=== PATIENT | female | born 1960 | race Caucasian/White ===

== ENCOUNTER 2018-04-03 04:00 | Inpatient (IN) | payer OTHER ==
[~2018-04-03] VITALS: Ht 162.6 cm; Wt 72.6 kg
[~2018-04-03 04:00] MED LIST: AFLURIA 2045 MCG/0.4; ALDACTONE25 MG PO; ALPRAZOLAM 0.0.25 M1 PO; AMBIEN 5 MG TABL5 M1 PO; ANTI-ITCH28.4 GM TP; ATIVAN1 MG PO; AUGMENTIN 875875 MG PO; BENADRYL25 MG PO; BISMATROL262 MG/15 PO; CIPRO250 M1 PO; CLONAZEPAM 0.50.5 M1 PO; COREG PO; CREON DR 6,0001 EACH PO; DEPAKOTE ER500 MG PO; DILAUDID 4 MG TA4 M1 PO; DIPHENHYDRAMINE25 M3 PO; DUONEB 2.5-0.5 M3 ML INH; EXCEDRIN MIGRA1 EACH PO; FISH OIL 1,001000 M2 PO; FLONASE 0.05%50 MCG NASAL; FOLIC ACID1 MG PO; FUROSEMIDE 40 M40 M1 PO; GABAPENTIN 100100 MG PO; GABAPENTIN100 MG PO; GLUCAGEN1 M2 IM; GLUCAGEN1 MG IM; GLUCOTROL5 MG PO; HUMALOG100 UNIT/1 SUBQ; HUMALOG100 UNIT/2 SQ; HYDROCODONE-AP1 EAC6 PO; IBUPROFEN 400400 M1 PO; IBUPROFEN 600600 M1 PO; IMITREX 25 MG T25 M1 PO; KEFLEX500 MG PO; KLOR-CON 1010 MEQ PO; LAMICTAL100 MG PO; LAMISIL250 MG PO; LANOXIN 0.120.125 M1 PO; LEVOTHROID125 MCG PO; LEVOTHYROXIN0.025 MG PO; LEXAPRO 10 MG T10 M1 PO; LEXAPRO20 MG PO; LIORESAL 10 MG10 MG PO; LOPERAMIDE 2 MG2 M1 PO; LOPRESSOR25 PO; LYRICA 50 MG50 MG PO; MAALOX ADVANCE355 M1 PO; MAGOX 400400 MG PO; MELATIN3 MG PO; METOPROLOL TART25 MG PO; METROCREAM45 GM TP; MILK OF MA2400 MG/10 PO; MYSOLINE50 MG PO; NEURONTIN 300300 M1 PO; NOVOLOG100 UNIT/1; NOVOLOG100 UNIT/1 SQ; NOVOLOG100 UNIT/1 SUBQ; OLANZAPINE5 MG PO; OMEPRAZOLE20 M2 PO; ONDANSETRON HCL4 M2 PO; ONDANSETRON HCL4 M3 PO; ONDANSETRON ODT4 MG PO; OXYBUTYNIN 5 MG5 M2 PO; OXYCODONE HCL5 M1 PO; OXYIR 5 MG CAPSU5 M1 PO; PANCRELIPASE 51 EACH PO; PEPTO-BISM262 MG/15 PO; PERCOCET 5-3251 EACH PO; PNEUMOVAX25 MCG/0.5; PROMETHAZINE IM; PROTONIX40 M2 PO; PROVENTIL HFA6.7 G1 INH; SEROQUEL 100 M100 M1 PO; SEROQUEL 50 MG50 M1 PO; SEROQUEL 50 MG50 MG PO; SORE THROAT SP177 M1 MM; SYNTHROID125 MCG PO; SYNTHROID75 MCG PO; TIZANIDINE HCL4 MG PO; TOPROL XL25 MG PO; TRILIPIX135 MG PO; TYLENOL EXTRA500 MG PO; TYLENOL325 MG PO; VIMPAT200 MG PO; VITAMIN B-1100 M1 PO; VITAMIN B-650 M1 PO; VITAMIN D3400 UNIT PO; WELLBUTRIN SR100 MG PO; XANAX 0.25 MG0.25 MG PO; ZANAFLEX4 MG PO; ZEGERID 40 MG1 EACH PO; ZYPREXA ZYDIS10 MG PO; ZYPREXA10 MG/VIAL IM; ZYRTEC 10 MG TA10 MG PO
[2018-04-03 04:05] VITALS: BP 117/76
[2018-04-03 04:55] LABS: ABSOLUTE NEUTROPHILS 4.3 thou/uL (1.4-8.2); BASOPHILS 0.8 % (0.0-2.0); EOSINOPHILS 2.7 % (0.0-3.0); HEMATOCRIT 38.1 % (37.0-47.0); HEMOGLOBIN 13.4 gm/dL (12.0-15.0); LYMPHOCYTES 30.9 % (24.0-44.0); MCHC 35.3 g/dL (28.0-37.0); MCV 90.6 fL (80.0-100.0); MONOCYTES 7.6 % (1.0-8.0); PLATELET COUNT 157 thou/uL (150-400); RBC 4.21 mil/uL (4.20-5.00); RDW 13.2 % (10.5-14.5); WBC 7.5 thou/uL (4.0-11.0)
[2018-04-03 05:03] LABS: CREATININE 1.1 mg/dL (0.6-1.0); POTASSIUM 3.8 mmol/L (3.5-5.1)
[2018-04-03 05:08] LABS: ALBUMIN 3.3 g/dL (3.4-5.0); TOTAL BILIRUBIN 0.2 mg/dL (<0.1-1.0)
[2018-04-03] MEDS ORDERED: FISH OIL 1,001000 M2 PO (07:01)
[2018-04-03] MEDS ORDERED: VITAMIN D1000 UNI1 PO (07:07)
[2018-04-03] MEDS ORDERED: LIORESAL 10 MG10 MG PO (07:08)
[2018-04-03] MEDS ORDERED: NOVOLOG100 UNIT/1 SUBQ (07:13)
[2018-04-03 10:52] LABS: URINE BILIRUBIN NEGATIVE (Negative); URINE BLOOD NEGATIVE (Negative); URINE CLARITY CLEAR; URINE COLOR YELLOW; URINE GLUCOSE-RANDOM* NEGATIVE (Negative); URINE KETONES NEGATIVE (Negative); URINE LEUKOCYTES-REFLEX NEGATIVE (Negative); URINE NITRITE-REFLEX NEGATIVE (Negative); URINE PROTEIN (DIPSTICK) NEGATIVE (Negative); URINE SPECIFIC GRAVITY <= 1.005 (1.005-1.035); URINE UROBILINOGEN 0.2 E.U./dl (0.2-1.0)
[2018-04-03 11:21] VITALS: BP 110/71
[2018-04-03 12:55] VITALS: BP 110/80
[2018-04-03 13:10] VITALS: BP 120/67
[2018-04-03 16:20] VITALS: BP 100/41
[2018-04-03 19:58] VITALS: BP 96/74
[2018-04-04 00:05] VITALS: BP 113/55
[2018-04-04 04:10] LABS: GLYCOHEMOGLOBIN (HGB A1C) 5.9 % (4.8-5.6)
[2018-04-04 04:30] LABS: ABSOLUTE NEUTROPHILS 2.3 thou/uL (1.4-8.2); BASOPHILS 0.7 % (0.0-2.0); EOSINOPHILS 2.8 % (0.0-3.0); HEMATOCRIT 36.3 % (37.0-47.0); HEMOGLOBIN 12.4 gm/dL (12.0-15.0); MCH 31.6 pg (26.0-34.0); MCHC 34.3 g/dL (28.0-37.0); MCV 92.2 fL (80.0-100.0); PLATELET COUNT 147 thou/uL (150-400); POLYS 50.5 % (36.0-66.0); RBC 3.94 mil/uL (4.20-5.00); RDW 13.2 % (10.5-14.5); WBC 4.6 thou/uL (4.0-11.0)
[2018-04-04 04:35] LABS: CALCIUM 8.4 mg/dL (8.5-10.1); CREATININE 0.9 mg/dL (0.6-1.0); MAGNESIUM 1.8 mg/dL (1.8-2.4)
[2018-04-04 04:50] VITALS: BP 106/57
[2018-04-04 08:50] VITALS: BP 98/51
[2018-04-04 11:45] VITALS: BP 126/63
[2018-04-04 15:30] VITALS: BP 107/67
[2018-04-04 19:17] VITALS: BP 129/80
[2018-04-04 21:04] LABS: BE(vivo) 0.9 mmol/L (-2 to +3); HCO3 24.3 mmol/L (22.0-26.0); PCO2 34.7 mmHg (35.0-45.0); PO2 65.1 mmHg (80.0-100.0); pH 7.463 (7.360-7.450)
[2018-04-05 03:53] VITALS: BP 125/69
[2018-04-05 03:58] LABS: ABSOLUTE NEUTROPHILS 1.8 thou/uL (1.4-8.2); BASOPHILS 0.7 % (0.0-2.0); EOSINOPHILS 2.4 % (0.0-3.0); HEMATOCRIT 35.8 % (37.0-47.0); HEMOGLOBIN 12.5 gm/dL (12.0-15.0); MCH 31.9 pg (26.0-34.0); MCHC 35.1 g/dL (28.0-37.0); PLATELET COUNT 130 thou/uL (150-400); POLYS 43.9 % (36.0-66.0); RBC 3.93 mil/uL (4.20-5.00)
[2018-04-05 04:11] LABS: CALCIUM 8.7 mg/dL (8.5-10.1); CREATININE 1.1 mg/dL (0.6-1.0); POTASSIUM 3.8 mmol/L (3.5-5.1)
[2018-04-05] MEDS ORDERED: KEFLEX500 M2 PO (10:45)
[2018-04-05 11:00] VITALS: BP 117/66
[2018-04-05 15:01] VITALS: BP 139/91
[2018-04-05 19:44] VITALS: BP 148/97
== END 2018-04-05 20:33 | DRG 603 ==
LOC: ER 04:00 → EROBS 06:13 → 2N 12:56
PROVIDERS: Emergency Medicine; Hospitalist; Nurse Practitioner
DX: L03.115 Cellulitis of right lower limb (principal); G82.20 Paraplegia, unspecified; L03.116 Cellulitis of left lower limb; F31.9 Bipolar disorder, unspecified; G40.909 Epilepsy, unspecified, not intractable, without status epilepticus; E11.40 Type 2 diabetes mellitus with diabetic neuropathy, unspecified; E11.22 Type 2 diabetes mellitus with diabetic chronic kidney disease; I12.9 Hypertensive chronic kidney disease with stage 1 through stage 4 chronic kidney disease, or unspecified chronic kidney disease; N18.3 Chronic kidney disease, stage 3 (moderate); E03.9 Hypothyroidism, unspecified; K59.00 Constipation, unspecified; N32.81 Overactive bladder; F17.210 Nicotine dependence, cigarettes, uncomplicated; F10.10 Alcohol abuse, uncomplicated; Z79.899 Other long term (current) drug therapy; Z79.4 Long term (current) use of insulin; I25.2 Old myocardial infarction; Z79.82 Long term (current) use of aspirin; Z88.2 Allergy status to sulfonamides; Z88.8 Allergy status to other drugs, medicaments and biological substances; Z91.041 Radiographic dye allergy status; Z91.013 Allergy to seafood; Z87.19 Personal history of other diseases of the digestive system; Z99.3 Dependence on wheelchair
CPT/HCPCS: 10194

== ENCOUNTER 2018-08-06 02:29 | Inpatient (IN) | payer OTHER ==
[~2018-08-06] VITALS: Ht 152.4 cm; Wt 70.3 kg
--- NOTE | ~2018-08-06 | EKG ---
[address] [address] ELECTROCARDIOGRAM REPORT Name: BUNNY LUJAN Room #: 451-P ADM IN ..#: [id number] Admission: 08/06/18 Attend Phys: Scot Edmondson MD Discharge: Date of : 56 Report #: [id number] THIS REPORT FOR: //name// [facility] ED Test Date: 2018-08-06 Test Time: 04:29:36 Pat Name: BUNNY LUJAN Department: Room: [facility] Gender: F Nurseryperson: jennifer : 1960 Requested By: Navi Holman Order Number: [id number] MD: Gustavo Jose Measurements Intervals [place] Rate: 88 P: 66 TN: 155 QRS: -30 QRSD: 90 T: 66 QT: 398 QTc: 482 Interpretive Statements Sinus rhythm Left axis deviation Borderline T wave abnormalities Compared to ECG 01/01/2018 20:10:29 No significant change was found Electronically Signed On 08-06-2018 9:39:24 FUR DESIGNER by Gustavo Jose [email or web address] <ELECTRONICALLY SIGNED> By: Gustavo Jose MD, [facility] 08/06/18 0939 0429 042 Gustavo Jose MD, [facility] /EPI
--- NOTE | ~2018-08-06 | EEG ---
[facility] [place] [address] ELECTROENCEPHALOGRAM Name: BUNNY LUJAN Room #: 451-P ADM IN M.R.#: [id number] Admission: 08/06/18 Attend Phys: Junior Kumar MD Discharge: Date of : 56 Report #: [id number] THIS REPORT FOR: //name// CC: Junior Pretty DATE OF SERVICE: 08/07/2018 This patient is being evaluated for the possibility of seizure. EEG was done by placing the electrodes by standard 10-20 system of electrode placement. Both referential and sequential montages were used for recording. Background activity in this patient's EEG is about 11 Hz and 40 microvolt. The patient became drowsy that is associated with bilateral slowing. Photic stimulation was unremarkable. Throughout the record, no active epileptiform activity was noticed. IMPRESSION: This patient's electroencephalogram is within normal limits. It is a very well formed electroencephalogram. By: 1709 1718 Amari Diamond MD /nt
[~2018-08-06 02:29] MED LIST changes: +KEFLEX500 M2 PO; +VITAMIN D1000 UNI1 PO
[2018-08-06 02:39] VITALS: BP 126/66
[2018-08-06 04:17] LABS: HEMATOCRIT 35.1 % (37.0-47.0); MCH 30.8 pg (26.0-34.0); MCHC 34.3 g/dL (28.0-37.0); MCV 89.9 fL (80.0-100.0); RBC 3.9 mil/uL (4.20-5.00); RDW 13.1 % (10.5-14.5); WBC 5.4 thou/uL (4.0-11.0)
[2018-08-06 04:26] LABS: ANION GAP 9 mmol/L (7-16); BUN 9 mg/dL (7-18); CHLORIDE 108 mmol/L (98-107); CO2 29 mmol/L (21-32); GLUCOSE 112 mg/dL (74-106); POTASSIUM 3.5 mmol/L (3.5-5.1); SODIUM 146 mmol/L (136-145)
[2018-08-06 04:34] LABS: TROPONIN-I <0.06 ng/mL (<0.06)
[2018-08-06 04:36] LABS: BE(vivo) 3.5 mmol/L (-2 to +3); HCO3 28.2 mmol/L (22.0-26.0); PCO2 42.8 mmHg (35.0-45.0); PO2 71.4 mmHg (80.0-100.0); pH 7.436 (7.360-7.450); sO2 94.8 % (92.0-98.0)
[2018-08-06 04:54] LABS: URINE BILIRUBIN NEGATIVE (Negative); URINE BLOOD NEGATIVE (Negative); URINE CLARITY CLEAR; URINE COLOR YELLOW; URINE GLUCOSE-RANDOM* NEGATIVE (Negative); URINE KETONES 1+ (Negative); URINE LEUKOCYTES-REFLEX NEGATIVE (Negative); URINE NITRITE-REFLEX NEGATIVE (Negative); URINE PROTEIN (DIPSTICK) NEGATIVE (Negative); URINE UROBILINOGEN 0.2 E.U./dl (0.2-1.0)
[2018-08-06 05:02] LABS: AMP/METHAMP Negative (Negative); BARBITURATES Negative (Negative); BENZODIAZEPINES Negative (Negative); COCAINE Negative (Negative); METHADONE Negative (Negative); OPIATES Negative (Negative); PCP Negative (Negative)
[2018-08-06 06:46] VITALS: BP 100/56
[2018-08-06 06:58] VITALS: BP 100/56
[2018-08-06] MEDS ORDERED: NEURONTIN 300300 M1 PO (07:53)
[2018-08-06 16:57] LABS: ALBUMIN 2.6 g/dL (3.4-5.0); DIRECT BILIRUBIN 0.1 mg/dL (<0.1-0.3); TOTAL BILIRUBIN 0.4 mg/dL (<0.1-1.0); TOTAL PROTEIN 5.6 g/dL (6.4-8.2)
[2018-08-06 19:05] VITALS: BP 137/87
[2018-08-07 04:03] VITALS: BP 120/66
[2018-08-07 05:59] LABS: HEMATOCRIT 33.9 % (37.0-47.0); HEMOGLOBIN 11.7 gm/dL (12.0-15.0); MCH 31.5 pg (26.0-34.0); MCHC 34.5 g/dL (28.0-37.0); MCV 91.3 fL (80.0-100.0); RBC 3.71 mil/uL (4.20-5.00); RDW 13.4 % (10.5-14.5); WBC 4.8 thou/uL (4.0-11.0)
[2018-08-07 06:07] LABS: CALCIUM 8.4 mg/dL (8.5-10.1); CREATININE 0.9 mg/dL (0.6-1.0); POTASSIUM 3.7 mmol/L (3.5-5.1)
[2018-08-07 08:17] VITALS: BP 106/53
[2018-08-07 13:56] LABS: TSH 0.544 uIU/mL (0.358-3.740)
[2018-08-07] MEDS ORDERED: AUGMENTIN 875-1 EACH PO (13:59)
[2018-08-07 14:51] VITALS: BP 101/58
[2018-08-07 19:16] VITALS: BP 105/66
[2018-08-08 02:47] VITALS: BP 118/13
[2018-08-08 07:56] VITALS: BP 101/53
[2018-08-08 08:43] LABS: CALCIUM 9.3 mg/dL (8.5-10.1); CREATININE 0.9 mg/dL (0.6-1.0); POTASSIUM 3.9 mmol/L (3.5-5.1)
[2018-08-08 16:45] VITALS: BP 141/64
[2018-08-09 16:10] LABS: PRIMIDONE 0.5 ug/mL (5.0-12.0)
== END 2018-08-08 19:20 | DRG 603 ==
LOC: ER 02:29 → 4W 06:42 → EROBS 06:42 → 4W 07:34
PROVIDERS: Emergency Medicine; Hospitalist; Psychiatry & Neurology Neurology
DX: L03.116 Cellulitis of left lower limb (principal); E46 Unspecified protein-calorie malnutrition; K74.60 Unspecified cirrhosis of liver; L03.115 Cellulitis of right lower limb; F31.9 Bipolar disorder, unspecified; G40.909 Epilepsy, unspecified, not intractable, without status epilepticus; E11.40 Type 2 diabetes mellitus with diabetic neuropathy, unspecified; F17.210 Nicotine dependence, cigarettes, uncomplicated; N32.81 Overactive bladder; E83.42 Hypomagnesemia; K21.9 Gastro-esophageal reflux disease without esophagitis; Z71.6 Tobacco abuse counseling; Z68.30 Body mass index [BMI] 30.0-30.9, adult; I25.2 Old myocardial infarction; Z79.4 Long term (current) use of insulin; Z79.82 Long term (current) use of aspirin; Z79.51 Long term (current) use of inhaled steroids; Z79.899 Other long term (current) drug therapy; Z91.041 Radiographic dye allergy status; Z91.013 Allergy to seafood; Z88.2 Allergy status to sulfonamides; Z91.048 Other nonmedicinal substance allergy status; Z82.0 Family history of epilepsy and other diseases of the nervous system
CPT/HCPCS: 10045

== ENCOUNTER 2018-08-13 04:18 | Emergency (ER) | payer OTHER ==
[~2018-08-13] VITALS: Ht 149.9 cm; Wt 68.0 kg
[~2018-08-13 04:18] MED LIST changes: +AUGMENTIN 875-1 EACH PO
[2018-08-13 06:12] VITALS: BP 109/67
== END 2018-08-13 07:13 | disposition home or self-care (01) ==
LOC: ER 04:18
DX: S01.01XA Laceration without foreign body of scalp, initial encounter (principal); F17.210 Nicotine dependence, cigarettes, uncomplicated; F31.9 Bipolar disorder, unspecified; G62.9 Polyneuropathy, unspecified; K74.60 Unspecified cirrhosis of liver; Z91.013 Allergy to seafood; Z91.041 Radiographic dye allergy status; Z91.048 Other nonmedicinal substance allergy status; Z88.2 Allergy status to sulfonamides; W05.0XXA Fall from non-moving wheelchair, initial encounter; Y93.89 Activity, other specified; Y92.89 Other specified places as the place of occurrence of the external cause; Y99.8 Other external cause status

== ENCOUNTER 2019-09-10 12:42 | Emergency (ER) | payer OTHER ==
[~2019-09-10] VITALS: Ht 149.9 cm; Wt 68.0 kg
[2019-09-10 13:11] LABS: ABSOLUTE NEUTROPHILS 5.2 thou/uL (1.4-8.2); BASOPHILS 0.5 % (0.0-2.0); EOSINOPHILS 4.5 % (0.0-3.0); HEMATOCRIT 38.8 % (37.0-47.0); HEMOGLOBIN 13.3 gm/dL (12.0-15.0); LYMPHOCYTES 19.6 % (24.0-44.0); MCH 29.4 pg (26.0-34.0); MCHC 34.3 g/dL (28.0-37.0); MCV 85.7 fL (80.0-100.0); MONOCYTES 7.6 % (1.0-8.0); PLATELET COUNT 117 thou/uL (150-400); POLYS 67.8 % (36.0-66.0); RBC 4.53 mil/uL (4.20-5.00); RDW 17.2 % (10.5-14.5); WBC 7.7 thou/uL (4.0-11.0)
[2019-09-10 13:17] LABS: CALCIUM 9.8 mg/dL (8.5-10.1); CREATININE 1.5 mg/dL (0.6-1.0); POTASSIUM 3.4 mmol/L (3.5-5.1)
[2019-09-10 13:23] LABS: ALBUMIN 2.8 g/dL (3.4-5.0); TOTAL BILIRUBIN 0.5 mg/dL (<0.1-1.0); TOTAL PROTEIN 7.1 g/dL (6.4-8.2)
[2019-09-10 18:26] VITALS: BP 101/53
== END 2019-09-10 18:25 | disposition home or self-care (01) ==
LOC: ER 12:42
PROVIDERS: Physician Assistant
DX: R56.9 Unspecified convulsions (principal); F31.9 Bipolar disorder, unspecified; I25.2 Old myocardial infarction; G62.9 Polyneuropathy, unspecified; F17.210 Nicotine dependence, cigarettes, uncomplicated; Z88.2 Allergy status to sulfonamides; Z91.018 Allergy to other foods

== ENCOUNTER 2019-09-21 21:39 | Inpatient (IN) | payer OTHER ==
[~2019-09-21] VITALS: Ht 162.6 cm; Wt 69.3 kg
--- NOTE | ~2019-09-21 | EEG ---
[facility] [place] [address] ELECTROENCEPHALOGRAM Name: BUNNY LUJAN Room #: 213-P ADM IN M.R.#: [id number] Admission: 09/22/19 Attend Phys: Maximo Moctezuma MD Discharge: Date of : 56 Report #: [id number] THIS REPORT FOR: //name// CC: [facility]imo [facility] DATE OF SERVICE: 09/23/2019 INDICATIONS: This patient is being evaluated for the possibility of seizure. PROCEDURE: EEG was done by placing the electrodes by standard 10-20 system of electrode placement. Both referential and sequential montages were used for recording. Background activity in this patient's EEG appears to be about 8 Hz and 40 microvolts. The patient became drowsy that is associated with bilateral slowing and vertex sharp waves. Throughout the record, no active epileptiform activity was noticed. IMPRESSION: This patient's EEG does not demonstrate any clear-cut epileptiform activity. EEG is intermixed with theta range slowing on both sides. That is a nonspecific abnormality, which can occur with drowsiness, effect of psychotropic medication, dementia, etc. Clinical correlation is recommended. By: 1555 [id number] Amari Pascual MD /nt
[2019-09-21 21:47] VITALS: BP 80/40
[2019-09-21 22:24] LABS: URINE BILIRUBIN NEGATIVE (Negative); URINE BLOOD NEGATIVE (Negative); URINE CLARITY CLEAR; URINE COLOR YELLOW; URINE GLUCOSE-RANDOM* NEGATIVE (Negative); URINE KETONES NEGATIVE (Negative); URINE LEUKOCYTES-REFLEX NEGATIVE (Negative); URINE NITRITE-REFLEX NEGATIVE (Negative); URINE PROTEIN (DIPSTICK) NEGATIVE (Negative); URINE SPECIFIC GRAVITY <= 1.005 (1.005-1.035); URINE UROBILINOGEN 0.2 E.U./dl (0.2-1.0)
[2019-09-21 22:31] LABS: AMP/METHAMP Negative (Negative); BARBITURATES Negative (Negative); BENZODIAZEPINES Negative (Negative); COCAINE Negative (Negative); METHADONE Negative (Negative); OPIATES POSITIVE (Negative); PCP Negative (Negative)
[2019-09-21 22:38] LABS: BE(vivo) -0.2 mmol/L (-2 to +3); HCO3 25.2 mmol/L (22.0-26.0); PCO2 44.5 mmHg (35.0-45.0); PO2 81.4 mmHg (80.0-100.0); pH 7.371 (7.360-7.450); sO2 95.7 % (92.0-98.0)
[2019-09-21 23:14] LABS: ANION GAP 7 mmol/L (7-16); BUN 5 mg/dL (7-18); CALCIUM 8.5 mg/dL (8.5-10.1); CHLORIDE 108 mmol/L (98-107); CO2 29 mmol/L (21-32); CREATININE 1.1 mg/dL (0.6-1.0); GLUCOSE 148 mg/dL (74-106); POTASSIUM 3.1 mmol/L (3.5-5.1); SODIUM 144 mmol/L (136-145)
[2019-09-21 23:23] LABS: ABSOLUTE NEUTROPHILS 1.9 thou/uL (1.4-8.2); BASOPHILS 0.8 % (0.0-2.0); EOSINOPHILS 4.8 % (0.0-3.0); HEMATOCRIT 24.7 % (37.0-47.0); HEMOGLOBIN 8.3 gm/dL (12.0-15.0); LYMPHOCYTES 31.5 % (24.0-44.0); MCH 30.1 pg (26.0-34.0); MCHC 33.8 g/dL (28.0-37.0); MCV 89.1 fL (80.0-100.0); MONOCYTES 8.7 % (1.0-8.0); PLATELET COUNT 120 thou/uL (150-400); POLYS 54.2 % (36.0-66.0); RBC 2.77 mil/uL (4.20-5.00); RDW 17.8 % (10.5-14.5); TROPONIN-I <0.06 ng/mL (<0.06); WBC 3.5 thou/uL (4.0-11.0)
[2019-09-22] VITALS (13 sets, daily range): BP systolic 99–134; BP diastolic 56–93
[2019-09-22 01:00] LABS: ABSOLUTE NEUTROPHILS 1.6 thou/uL (1.4-8.2); BASOPHILS 0.8 % (0.0-2.0); EOSINOPHILS 4.9 % (0.0-3.0); HEMATOCRIT 25.2 % (37.0-47.0); HEMOGLOBIN 8.6 gm/dL (12.0-15.0); LYMPHOCYTES 36.8 % (24.0-44.0); MCH 30.1 pg (26.0-34.0); MCHC 33.9 g/dL (28.0-37.0); MCV 88.9 fL (80.0-100.0); MONOCYTES 8.7 % (1.0-8.0); PLATELET COUNT 112 thou/uL (150-400); POLYS 48.8 % (36.0-66.0); RBC 2.84 mil/uL (4.20-5.00); RDW 17.7 % (10.5-14.5); WBC 3.3 thou/uL (4.0-11.0)
--- NOTE | 2019-09-22 02:59 | NUR ---
PT ARRIVED FROM ED AT 0155 ACCOMPANIED BY ED RN, TOBIAS. PT LETHARGIC RESPONDED WHEN TRANSFERED TO ICU BED. PT ABLE TO IDENTIFY SELF AND ACKNOWLEDGES THAT SHE IS IN THE HOSPITAL. UPON ASSESSMENT PT WAS NOTED TO HAVE A CONGESTED COUGH. ORAL CARE PERFORMED. PT WAS ORALLY SUCTIONED AND NOTED TO HAVE MODERATE AMOUNT OF VOMITUS/UNDIGESTED FOOD. ORDERS INITIATED PTs SYSTOLIC BP 90s. PER ED REPORT PT HAD BEEN HAVING SIMILAR BP IN ED. WILL CONTINUE TO MONITOR.
[2019-09-22 03:26] LABS: HEMATOCRIT 28.2 % (37.0-47.0); HEMOGLOBIN 9.4 gm/dL (12.0-15.0); MCH 29.9 pg (26.0-34.0); MCHC 33.3 g/dL (28.0-37.0); MCV 90.1 fL (80.0-100.0); RBC 3.13 mil/uL (4.20-5.00); RDW 18.2 % (10.5-14.5); WBC 3.6 thou/uL (4.0-11.0)
[2019-09-22 03:29] LABS: CALCIUM 8.6 mg/dL (8.5-10.1); CREATININE 1.1 mg/dL (0.6-1.0); POTASSIUM 3.5 mmol/L (3.5-5.1)
[2019-09-22 04:02] LABS: TSH 0.434 uIU/mL (0.358-3.740)
--- NOTE | 2019-09-22 07:30 | NUR ---
Assumed care at 0700. Pt appears drowsy and is disoriented to place and time. Pt does not make eye contact when communicating with staff. Pt is tearful saying "I have to pee!" Pt was placed on bedpan but was unable to void. Bladder was palpable. Nurse bladder scanned the Pt and >999 mls were noted. Provider was notified and a haro catheter was placed. A residual of 1200 mls was noted after placement. Pt expressed relief of urinary discomfort. Nurse will continue to monitor.
--- NOTE | 2019-09-22 12:50 | NUR ---
Dr. Moctezuma on unit to see PT. He ordered for the haro catheter to be dc'd and stated the PT could be transferred out of ICU. Nurse dc'd haro catheter and PT tolerated it well. Will continue to monitor.
--- NOTE | 2019-09-22 18:01 | NUR ---
Report called to Desi on CCU who verbalized understanding. PT left unit on bed with nurse escort. PT is agreeable to transfer.
--- NOTE | 2019-09-22 21:50 | NUR ---
PT REPORTED LEAVING PERSONAL ITEMS IN ICU PRIOR TO TRANSFER NOTABLY [address] MARIELA, BAG OF CHIPS, BAG OF TEA BAGS, 2 PANTENE BOTTLES AND LAVENDER POWDER. THIS NURSE WENT TO ICU X2 NONE OF THE ITEMS WERE IN HER PREVIOUS ROOM 243. PT AGITATED STATED SHE WANTED FILE GRIEVANCE. THIS NURSE ASKED HSE, WHO WENT AND SPOKE WITH THE PT. PER HSE SUP PT LEFT HER ITEMS AT [facility] WHERE SHE RESIDES NOT IN ICU
[2019-09-23 00:48] VITALS: BP 111/55
[2019-09-23 04:45] VITALS: BP 114/64; BP 158/65
--- NOTE | 2019-09-23 06:25 | NUR ---
PT A&O X4 FORGETFUL. ABLE TO MAKE BASIC NEEDS KNOWN. PARAPLEGIC. PT ADM FOR NARCOTICS OVERDOSE. NO PAIN MEDICATION GIVEN OVERNITE. INCONT ASSIST X1 CHECK AND CHANGE. SEIZURE PRECAUTIONS. ACHS. PT HAS SCHEDULED EEG AND MRI.
[2019-09-23 07:50] VITALS: BP 124/64
--- NOTE | 2019-09-23 08:14 | NUR ---
ASSUMED CARE OF PT APPROX 0713, RESTING LISTENING TO TELEVISIN, C/O SEVERE PAIN, BLE X YEARS, LEGS WRAPPED, NO TYLENOL OR IBUPROFEN ON MED REQ. PT STATES THE ONLY THING THAT WORKS FOR HER IS HYDROCODONE, TYLENOL WORKS A LITTLE BUT HURTS HER GUT LIKE ASPIRIN. A&0X4, IS NOT IMPULSIVE THUS FAR. SEE SEPARATE INTERVENTIONS FOR ASSESSMENTS, CARDIAC MONITORED. WILL CONTINUE TO MONIOR. HASN'T WALKED, PER PT, SINCE JUL 22, 2010, FELL INTO DIABETIC COMA. ENCOURAGED HER TO USE CALL LIGHT FOR ANY NEEDS
[2019-09-23 11:30] VITALS: BP 134/70
--- NOTE | 2019-09-23 15:50 | NUR ---
PT ASKED FOR HER SEIZURE MEDICATION AND BACLOFEN. NOT ON EMAR, ON HER ORIGINAL MED LIST, REVIEWED MEDS AND SHE TAKES ALL SAVE FOR FISH OIL (ALLERGY TO FISH). SENT COMMUNICATION TO PHYSICIAN FOR REVIEW, IF APPLICABLE
[2019-09-23 16:00] VITALS: BP 124/74
[2019-09-23 19:16] VITALS: BP 126/63
[2019-09-24 02:59] VITALS: BP 120/65
[2019-09-24 04:35] LABS: % SATURATION 22 % (20-39); IRON 30 ug/dL (50-170); TIBC 134 ug/dL (250-450)
[2019-09-24 04:45] LABS: CALCIUM 8.9 mg/dL (8.5-10.1); CREATININE 1.1 mg/dL (0.6-1.0); MAGNESIUM 1.6 mg/dL (1.8-2.4); POTASSIUM 3.7 mmol/L (3.5-5.1)
[2019-09-24 04:54] LABS: HEMATOCRIT 25.8 % (37.0-47.0); HEMOGLOBIN 8.6 gm/dL (12.0-15.0); MCHC 33.4 g/dL (28.0-37.0); MCV 89.9 fL (80.0-100.0); RBC 2.87 mil/uL (4.20-5.00); RDW 17.1 % (10.5-14.5); WBC 2.7 thou/uL (4.0-11.0)
--- NOTE | 2019-09-24 05:53 | NUR ---
ASSUMED PT CARE AT 1900 WITH NO SIGN OF DISTRESS NOTED IN PT. PT IS ALERT AND ORIENTED WITH NO SIGN OF DISTRESS NOTED. ASSESSMENT COMPLETED AND DOCUMENTED. FALL PRECAUTION IN PLACE. SCHEDULED MEDS ADMINISTERED TO PT. TOLERATED PO INTAKE. DENIES ANY FURTHER NEEDS AT THIS TIME.
[2019-09-24 07:55] VITALS: BP 106/54
[2019-09-24 11:39] VITALS: BP 107/59
--- NOTE | 2019-09-24 12:00 | NUR ---
WOUND CARE NOTE pt alert but forgetful, dm ulcer l foot above 5th toe, pt unsure how long wound has been then? unnbecca casanova was on l lower leg, w/ kerlix and domenica wrap, also kerlix domenica wraps to r lower leg, pt states domenica wraps keep swelling down, ulcer w/ some pink viable tissue w/ small area center of wound white slough, dry closed ulcer l buttock area, pt cooperative, feet warm, weak DP and PT pulses, no edmea, dry skin RECOMMENDATIONS; LOTION TO DRY SKIN W/ EVERY DRSG CHANGE, THERAHONEY TO L TOE WOUND, COVER w/ OPTIFOAM, KERLIX, DOMENICA WRAP, 3X WEEK, KERLIX AND DOMENICA TO R LOWER LEG TO CONTROL EDEMA, PROTECTIVE CREAM DAILY AND PRN TO L BUTTOCK CLOSED ULCER, PHOTO, EMBOSSING CALENDER OPERATOR MARY CARMEN NORRIS
--- NOTE | 2019-09-24 15:23 | NUR ---
FAXED CLINICAL UPDATE TO [facility] SPOKE WITH LETICIA IN ADM THAT POSS DC TODAY BACK TO FACILITY SHE CAN SET UP TRANSPORT WHEN PT DISCHARGES.
--- NOTE | 2019-09-24 16:50 | NUR ---
PT DISCHARGING TODAY TO [facility] FAXED DC ORDERS/SUMMARY TO FACILITY SPOKE WITH LETICIA IN ADM SHE RECEIVED DC ORDERS AND ARRANGED TRANSPORT BY [facility] FOR 1830 TODAY. NOTIFIED PT'S SON (BROOKS) AND DTR (ZAKIYAAMBROCIO) OF DISCHARGE AND TIME OF TRANSPORT. UNIT NOTIFIED AND CHART COPY PER US. RN TO CALL REPORT TO [phone].
[2019-09-24 17:17] VITALS: BP 121/81
--- NOTE | 2019-09-24 18:04 | NUR ---
ASSUMED CARE OF PT AT SHIFT CHANGE. ASSESSMENTS CHARTED. MEDS GIVEN PER NOV. VSS. PT A&OX4. C/O PAIN TREATED WITH IV MEDS WITH PARTIAL RELIEF. NO SZ ACTIVITY THIS SHIFT. PT USES BEDPAN. MRI AND EEG NEGATIVE. DISCHARGE ORDERS COMPLETE. TRANSPORTATION VIA WHEELCHAIR VAN ARRANGED. ALL BELONGINGS WITH PT.
[2019-09-27 09:07] LABS: PRIMIDONE 0.6 ug/mL (5.0-12.0)
== END 2019-09-24 19:01 | DRG 917 ==
LOC: ER 21:39 → EROBS 09-22 01:05 → ICU 09-22 01:50 → 2N 09-22 18:07
PROVIDERS: Emergency Medicine; Internal Medicine; Nurse Practitioner; Psychiatry & Neurology Neurology; ADMIT Internal Medicine
DX: T40.601A Poisoning by unspecified narcotics, accidental (unintentional), initial encounter (principal); J96.01 Acute respiratory failure with hypoxia; D61.818 Other pancytopenia; G82.20 Paraplegia, unspecified; G93.40 Encephalopathy, unspecified; F31.9 Bipolar disorder, unspecified; K74.60 Unspecified cirrhosis of liver; E87.6 Hypokalemia; E03.9 Hypothyroidism, unspecified; E11.40 Type 2 diabetes mellitus with diabetic neuropathy, unspecified; R19.7 Diarrhea, unspecified; I25.2 Old myocardial infarction; Z88.2 Allergy status to sulfonamides; Z88.8 Allergy status to other drugs, medicaments and biological substances; Z99.3 Dependence on wheelchair; Y92.89 Other specified places as the place of occurrence of the external cause; Z79.899 Other long term (current) drug therapy
CPT/HCPCS: 10081

== ENCOUNTER 2019-11-17 10:50 | Inpatient (IN) | payer OTHER ==
[~2019-11-17] VITALS: Ht 170.2 cm; Wt 72.2 kg
[2019-11-17 11:04] VITALS: BP 151/87
[2019-11-17] MEDS ORDERED: DEPAKOTE ER500 M1 PO (11:19)
[2019-11-17 11:46] LABS: BE(vivo) 1.4 mmol/L (-2 to +3); HCO3 26.9 mmol/L (22.0-26.0); PCO2 45.8 mmHg (35.0-45.0); PO2 73.3 mmHg (80.0-100.0); pH 7.386 (7.360-7.450); sO2 94.5 % (92.0-98.0)
[2019-11-17 12:11] LABS: URINE BILIRUBIN NEGATIVE (Negative); URINE BLOOD 3+ (Negative); URINE CLARITY CLEAR; URINE COLOR YELLOW; URINE GLUCOSE-RANDOM* NEGATIVE (Negative); URINE KETONES NEGATIVE (Negative); URINE LEUKOCYTES-REFLEX 2+ (Negative); URINE NITRITE-REFLEX NEGATIVE (Negative); URINE PROTEIN (DIPSTICK) NEGATIVE (Negative); URINE UROBILINOGEN 0.2 E.U./dl (0.2-1.0)
[2019-11-17 12:23] LABS: AMP/METHAMP Negative (Negative); BARBITURATES POSITIVE (Negative); BENZODIAZEPINES Negative (Negative); COCAINE Negative (Negative); METHADONE Negative (Negative); OPIATES Negative (Negative); PCP Negative (Negative)
[2019-11-17 12:25] LABS: RENAL EPITHELIAL CELLS 4-10 Moderate /LPF (None Seen); SQUAMOUS >10 Many /LPF (0-3); TRANSITIONAL EPITHEL CELL 4-10 Moderate /LPF (None Seen); URINE WBC-REFLEX 6-15 Few /HPF (0-5)
[2019-11-17 12:26] LABS: BACTERIA-REFLEX 1-9 Few /HPF (None Seen); CASTS None Seen /LPF (None Seen); CRYSTALS None Seen /LPF (None Seen)
[2019-11-17] MEDS ORDERED: PRO-STAT LIQUID30 M1 PO (12:43)
[2019-11-17 12:55] LABS: ABSOLUTE NEUTROPHILS 4.3 thou/uL (1.4-8.2); BASOPHILS 0.6 % (0.0-2.0); EOSINOPHILS 1.3 % (0.0-3.0); HEMATOCRIT 38.6 % (37.0-47.0); HEMOGLOBIN 12.4 gm/dL (12.0-15.0); LYMPHOCYTES 22.5 % (24.0-44.0); MCH 30.6 pg (26.0-34.0); MCHC 32.1 g/dL (28.0-37.0); MCV 95.2 fL (80.0-100.0); MONOCYTES 6.6 % (1.0-8.0); PLATELET COUNT 169 thou/uL (150-400); RBC 4.05 mil/uL (4.20-5.00); RDW 14.4 % (10.5-14.5); WBC 6.2 thou/uL (4.0-11.0)
[2019-11-17 13:10] LABS: ANION GAP 6 mmol/L (7-16); BUN 9 mg/dL (7-18); CALCIUM 9.3 mg/dL (8.5-10.1); CHLORIDE 105 mmol/L (98-107); CO2 33 mmol/L (21-32); GLUCOSE 112 mg/dL (74-106); POTASSIUM 4.3 mmol/L (3.5-5.1); SODIUM 144 mmol/L (136-145)
[2019-11-17 13:21] LABS: ALBUMIN 2.8 g/dL (3.4-5.0); MAGNESIUM 2.1 mg/dL (1.8-2.4); SGOT 9 U/L (15-37); SGPT 16 U/L (30-65); TOTAL BILIRUBIN 0.2 mg/dL (<0.1-1.0); TOTAL PROTEIN 6.9 g/dL (6.4-8.2); TROPONIN-I <0.06 ng/mL (<0.06)
[2019-11-17 15:59] VITALS: BP 147/82
[2019-11-17 16:33] VITALS: BP 164/72
--- NOTE | 2019-11-17 18:12 | NUR ---
ASSUMED CARE OF PT AT APPROX FROM ER D/T HYPOXIA AND AMS. PT LETHARGIC, RESPONDING TO SOME QUESTIONS. PT ALERT TO SELF AND CONFUSED. PT ON 3L NC, SATTING IN MID 90S. ADMISSION ORDERS COMPLETE. WILL CONTINUE TO MONITOR AND FOLLOW POC.
[2019-11-17 19:36] LABS: BE(vivo) -1.3 mmol/L (-2 to +3); HCO3 24.2 mmol/L (22.0-26.0); PCO2 43.5 mmHg (35.0-45.0); PO2 64.8 mmHg (80.0-100.0); pH 7.363 (7.360-7.450)
[2019-11-17 20:22] LABS: HEMATOCRIT 41.7 % (37.0-47.0); HEMOGLOBIN 13.5 gm/dL (12.0-15.0); MCH 30.4 pg (26.0-34.0); MCHC 32.4 g/dL (28.0-37.0); MCV 93.7 fL (80.0-100.0); RBC 4.45 mil/uL (4.20-5.00); RDW 14.3 % (10.5-14.5); WBC 20.6 thou/uL (4.0-11.0)
[2019-11-17 20:40] LABS: ANION GAP 8 mmol/L (7-16); BUN 10 mg/dL (7-18); CHLORIDE 106 mmol/L (98-107); CO2 30 mmol/L (21-32); GLUCOSE 198 mg/dL (74-106); SODIUM 144 mmol/L (136-145); TROPONIN-I <0.06 ng/mL (<0.06)
--- NOTE | 2019-11-17 21:20 | NUR ---
pt found with decreased loc and hypoxia, nurse unit manager called. see nurse unit manager flowsheet.
[2019-11-17 21:40] VITALS: BP 114/76
[2019-11-18 00:15] VITALS: BP 119/77
[2019-11-18 04:28] VITALS: BP 126/67
--- NOTE | 2019-11-18 05:12 | NUR ---
ASSUMED PT CARE AT AROUND 1900, PT IS ALERT AND ORIENTED TO SELF, PT IS SINUS TACHYCARDIA ON THE MONITOR WITH DECREASED O2 SAT ON 2LNC, RAPID RESPONSE CALLED, EKG SHOWERED SINUS TACHYCARDIA, PT WAS PUT ON BIPAP AND SOLUMEDRON, PT WAS RECEIVING ZOXYN AT THAT TIME, PT O2SATS STABLE WITH BIBAP THROUGH THE NIGHT AT 50%FLOW, COMPLAINED OF PAIN ON HER LOWER EXTREMITIES, MEDICATION GIVEN WITH PARTIAL RELIEF, RESTING IN BED, WILL CONTINUE TO MONITOR
[2019-11-18 08:01] VITALS: BP 94/59
--- NOTE | 2019-11-18 16:52 | NUR ---
pt knows her name and she can follow some commands, pt has off BIPAP and she is tolerated o2 2-4L/MIN/NC, pt is confused at time, and she is high fall risk, pt is continuing IV abx and pain management.
[2019-11-18 17:08] VITALS: BP 111/85
[2019-11-18 20:57] VITALS: BP 147/88
[2019-11-19 05:35] VITALS: BP 106/47
--- NOTE | 2019-11-19 06:34 | NUR ---
ASSUMED PT CARE AROUND 1900. PT IS ORIENTED TO SELF ONLY. PT SLEPT MOST OF THE NIGHT BUT WAS ARROUSABLE. Q2H TURN TO PREVENT SKIN BREAKDOWN. COMPLETE BED BATH GIVEN. RESPIRATIONS EVEN AND UNLABORED. O2 SATS STABLE ON 2L NC. PT HAD DRESSINGS TO BLE THAT WERE APPARENTLY IN PLACE PRIOR TO ADMISSION. DRESSINGS REMOVED, PICTURES TAKEN OF BLE REDNESS AND LEFT LATERAL FOOT ULCER. NEW DRESSINGS PLACED AND WOUND CARE NURSE CONSULTED. FALL PRECAUTIONS IN PLACE. PROGRESSING SLOWLY TOWARD POC GOALS. WILL GIVE REPORT TO ONCOMING NURSE.
[2019-11-19 08:21] VITALS: BP 116/62
--- NOTE | 2019-11-19 08:31 | EKG ---
[facility] [place] [address] ELECTROCARDIOGRAM REPORT Name: BUNNY LUJAN Room #: 208-P ADM IN M.R.#: [id number] Admission: 11/17/19 Attend Phys: Scot Edmondson MD Discharge: Date of : 56 Report #: [id number] THIS REPORT FOR: cc: Michael Pretty MD, Srinath MD Lundgren,Gustavo Ficth MD [facility] ~ THIS REPORT FOR: //name// [facility] ED Test Date: 2019-11-17 Test Time: 12:06:37 Pat Name: BUNNY LUJAN Department: Room: 208 Gender: F Tailor Fitter: THOMAS : 1960 Requested By: Mara Louis Order Number: [id number] MD: Gustavo Jose Measurements Intervals [place] Rate: 66 P: 59 WI: 156 QRS: -23 QRSD: 89 T: 33 QT: 410 QTc: 430 Interpretive Statements Sinus rhythm Borderline left axis deviation Compared to ECG 09/12/2019 13:59:28 ST (T wave) deviation no longer present Electronically Signed On 11-19-2019 8:30:46 DATA LIBRARIAN by Gustavo Jose [email or web address] <ELECTRONICALLY SIGNED> By: Gustavo Jose MD, [facility] 11/19/19 0830 120 05 Gustavo Jose MD, [facility] /EPI
--- NOTE | 2019-11-19 08:36 | EKG ---
[facility] [place] [address] ELECTROCARDIOGRAM REPORT Name: BUNNY LUJAN Room #: 208-P ADM IN M.R.#: [id number] Admission: 11/17/19 Attend Phys: Scot Edmondson MD Discharge: Date of : 56 Report #: [id number] THIS REPORT FOR: cc: Michael Pretty MD, Srinath MD Lundgren,Gustavo Fitch MD [facility] ~ THIS REPORT FOR: //name// [facility] Test Date: 2019-11-17 Test Time: 19:51:10 Pat Name: BUNNY LUAJN Department: Room: 208 P Gender: F Accounting Administrator: walter : 1960 Requested By: Asmita He Order Number: [id number] MD: Gustavo Jose Measurements Intervals [place] Rate: 121 P: 82 NC: 142 QRS: -44 QRSD: 86 T: 46 QT: 323 QTc: 459 Interpretive Statements Sinus tachycardia Abnormal R-wave progression, late transition Inferior infarct, old Baseline wander in lead(s) V6 Compared to ECG 09/12/2019 13:59:28 Inferior Q waves are more prominent heart rate has increased Electronically Signed On 11-19-2019 8:35:41 ENVIRONMENTAL SCIENCE TECHNICIAN by Gustavo Jose [email or web address] <ELECTRONICALLY SIGNED> By: Gustavo Jose MD, [facility] 11/19/1937 50 50 Gustavo Jose MD, [facility] /EPI
[2019-11-19 10:01] LABS: ABSOLUTE NEUTROPHILS 4.2 thou/uL (1.4-8.2); BASOPHILS 0.6 % (0.0-2.0); EOSINOPHILS 0.6 % (0.0-3.0); LYMPHOCYTES 20.4 % (24.0-44.0); MCH 30.8 pg (26.0-34.0); MCV 93.3 fL (80.0-100.0); MONOCYTES 5.5 % (1.0-8.0); POLYS 72.9 % (36.0-66.0); RBC 3.64 mil/uL (4.20-5.00); WBC 5.7 thou/uL (4.0-11.0)
[2019-11-19 10:20] LABS: HEMOGLOBIN 11.2 gm/dL (12.0-15.0)
[2019-11-19 10:21] LABS: PLATELET COUNT 141 thou/uL (150-400)
[2019-11-19 10:22] LABS: CALCIUM 9.3 mg/dL (8.5-10.1); CREATININE 1.2 mg/dL (0.6-1.0); POTASSIUM 3.8 mmol/L (3.5-5.1)
--- NOTE | 2019-11-19 11:23 | NUR ---
WOUND CONSULT; A LEFT 5TH TOE/LAT FOOT WOUND IDENTIFIED. PINK WOUNDBED, SEROUS DRAINAGE. CHRONIC BLE EDEMA. DENIES PAIN. RECOMMENDATIONS; 1-XEROFORM, BORDER FOAM 2-TUBIGRIPS BILATERALLY. DISCUSSED WITH RN
--- NOTE | 2019-11-19 14:24 | NUR ---
FAXED CLINICAL UPDATE TO [facility] SPOKE WITH LETICIA IN ADM SHE RECEIVED UPDATE. DP TO FOLLOW.
[2019-11-19 16:01] VITALS: BP 99/54
--- NOTE | 2019-11-19 16:09 | NUR ---
MET WITH PATIENT SHE IS ALERT/ORIENTATED SHE REPORTS SHE RESIDES AT [facility]. PLAN TO RETURN TO [facility]. ALERTED LIKELY DC TOMORROW. SHE IS HOPEFUL TO DC TOMORROW SHE EXPRESSES CONCERN SHE HER THINGS MAY BE STOLEN THE LONGER SHE IS AWAY. UPDATED CENTER [facility]. [facility] FOLLOWING.
--- NOTE | 2019-11-19 18:31 | NUR ---
RECEIVED PT'S CARE AROUND 0700; PT. ON BED RESTING WITH EYES CLOSED; EQUAL CHEST RISING NOTICED; ON ISOLATION; DURING AM ASSESSMENT C/O PAIN OVER ANKLES AND L. LITTLE TOE; PRN FENTANYL FOR PAIN; PHYSICIAN NOTIFIED; ORDERS RECEIVED; PO PRN PAIN MEDICATION GIVEN; RE-ASSESSMENT ST. DECREASE PAIN; ST. TAKING BACLOFEN Q4H; PHYSICIAN NOTIFIED; NO NEW ORDERS; SR ON THE MONITOR; TURN FROM SIDE TO SIDE; WOUND CARE PERFOMED BY WOUND NURSE; REQUESTED EYES DROPS; PHYSICIAN NOTIFIED; NO INSULIN COVER THROUGH THE DAY; ASSESSMENT CHARGED; FOLLOWING POC; WILL PASS ON REPORT;
[2019-11-19 20:39] VITALS: BP 109/69
[2019-11-20 04:09] LABS: HEMATOCRIT 34.3 % (37.0-47.0); HEMOGLOBIN 11.1 gm/dL (12.0-15.0); MCH 30.6 pg (26.0-34.0); MCHC 32.5 g/dL (28.0-37.0); RBC 3.64 mil/uL (4.20-5.00); RDW 14.3 % (10.5-14.5)
--- NOTE | 2019-11-20 04:09 | NUR ---
ASSESSMENT DOCUMENTED.PT BEEN RESTING IN NO ACUTE DISTRESS.A/OX3 W/FORGETFULNESS.VSS.TURNED AND REPOSITIONED Q2H.DENIES PAIN.DRESSING TO WOUNDS CDI.VOIDING ADEQUATELY.PT MAY DISCHARGE TODAY TO [facility].
[2019-11-20 04:11] LABS: CALCIUM 8.7 mg/dL (8.5-10.1); CREATININE 1.2 mg/dL (0.6-1.0); POTASSIUM 3.8 mmol/L (3.5-5.1)
[2019-11-20 04:30] VITALS: BP 98/59
[2019-11-20 08:00] VITALS: BP 106/82
[2019-11-20 11:30] VITALS: BP 125/80
[2019-11-20] MEDS ORDERED: BACLOFEN 10MG T10 MG PO (13:29)
[2019-11-20] MEDS ORDERED: LEVAQUIN 500 M500 M2 PO (13:30)
--- NOTE | 2019-11-20 14:25 | NUR ---
RECEIVED PT'S CARE AROUND 0710; PT. ON BED; RESTING WITH EYES CLOSED; EQUAL CHEST RISING NOTICED; DURING AM ASSESSMENT C/O PAIN; PRN PAIN MEDICATION GIVEN WITH AM MEDICATIONS; ASKING ABOUT MEDICATION DOSE AND FREQUENCY; EDUCATED ABOUT POSSIBLE REASONS BEHIND OF CHANGE; ST. UNDERSTANDING; SR ON THE MONITOR; ASSESSMENT CHARGED; FOLLOWED POC; D/C ORDERS ON PLACE; PLANTING MACHINE CREWMAN NOTIFIED; PT. NOTIFIED; WORKING ON D/C PAPERS;
--- NOTE | 2019-11-20 16:18 | NUR ---
PT DISCHARGING TODAY TO [facility] FAXED DC ORDER/SUMMARY TO FACILITY SPOKE WITH LETICIA IN ADM SHE RECEIVED ORDERS AND ARRANGED TRANSPORT BY [facility] FOR 5:30-6:00. LEFT MSG WITH PT'S FAMILY (BROOKS) OF DC AND TIME OF TRANSPORT AND MY NUMBER IF HE HAS ANY QUESTIONS. UNIT NOTIFIED AND CHART COPY PER US. RN TO CALL REPORT TO [phone].
[2019-11-20 16:30] VITALS: BP 103/59
== END 2019-11-20 18:22 | DRG 91 ==
LOC: ER 10:50 → EROBS 15:48 → 2N 15:48
PROVIDERS: Nurse Practitioner Acute Care; Physician Assistant; ADMIT Hospitalist
PROC: 5A09357 Assistance with Respiratory Ventilation, Less than 24 Consecutive Hours, Continuous Positive Airway Pressure (ICD-10-PCS; principal; 2019-11-17)
PROC: 5A09357 Assistance with Respiratory Ventilation, Less than 24 Consecutive Hours, Continuous Positive Airway Pressure (ICD-10-PCS; 2019-11-18)
DX: G92 Toxic encephalopathy (principal); J96.01 Acute respiratory failure with hypoxia; N39.0 Urinary tract infection, site not specified; I10 Essential (primary) hypertension; F17.210 Nicotine dependence, cigarettes, uncomplicated; F31.9 Bipolar disorder, unspecified; E03.9 Hypothyroidism, unspecified; E11.40 Type 2 diabetes mellitus with diabetic neuropathy, unspecified; T50.995A Adverse effect of other drugs, medicaments and biological substances, initial encounter; I25.2 Old myocardial infarction; Z87.01 Personal history of pneumonia (recurrent); Z79.899 Other long term (current) drug therapy; Z79.82 Long term (current) use of aspirin; Z79.4 Long term (current) use of insulin; Z91.013 Allergy to seafood; Z88.8 Allergy status to other drugs, medicaments and biological substances; Z88.2 Allergy status to sulfonamides; Z91.048 Other nonmedicinal substance allergy status; Z99.3 Dependence on wheelchair; Y92.89 Other specified places as the place of occurrence of the external cause; Z23 Encounter for immunization
CPT/HCPCS: 10081

== ENCOUNTER 2020-03-19 16:54 | Inpatient (IN) | payer OTHER ==
[~2020-03-19] VITALS: Ht 162.6 cm; Wt 80.7 kg
--- NOTE | ~2020-03-19 | EMS ---
[address] [address] EMS Patient Care Report Name: BUNNY LUJAN Room #: 351-P ADM IN M.R.#: [id number] Admission: 03/19/20 Attend Phys: Joycelyn Hammond Discharge: Date of : 56 Report #: [id number] THIS REPORT FOR: //name// Report Transmitted: 03/20/2020 01:05 EMS Care Summary [place], [place]/[facility] Incident [id number] @ 03/19/2020 16:17 Incident Location [address] [place] [address] Patient BUNNY LUJAN Female, 59 Years 1960 Patient Address [address] [place], [place] [id number] Patient History Hypertension (HTN),Seizures,Anxiety Disorder (Panic Attacks),Bipolar II Disorder,Depression,Anxiety,Peripheral Vascular Disease,Hypothyroidism,Type 2 Diabetes, Patient Allergies Sulfa,Fish allergy, Patient Medications Seroquel, Gabapentin, Albuterol, Magnesium Oxide, DuoNeb, Oxybutynin, Tramadol, Divalproex Sodium, Fluticasone, Omeprazole, Levothyroxine, Ondansetron, Insulin, Chief Complaint LEG AND ARM PAIN Disposition Transported No Lights/[place] Dispatch Reason Diabetic Problem Transported To [address] [address] EMS Patient Care Report Name: BUNNY LUJAN Room #: 351-P ADM IN M.R.#: [id number] Admission: 03/19/20 Attend Phys: Joycelyn Meier Manish Discharge: Date of : 56 Report #: [id number] Narrative PT FOUND IN [facility] WITH PUMPER CREW ASSISTING PT. [facility] STAFF STATE PT HAS LOW BLOOD SUGAR, SHE HAS BECOME UNCOOPERATIVE MAKING STATEMENTS THAT ARENT MAKING MUCH SENSE. [facility] STAFF STATE THEY HAVE GIVEN PT ORAL GLUCOSE AND ALSO GIVE IM INJECTION OF GLUCAGON. PUMPER CREW STATE HER BLOOD SUGAR IS IN 65. PT IS ASSISTED TO STRETCHER WITHOUT INCIDENT AND TAKEN TO AMBULANCE. ONCE ON AMBULANCE VITALS ARE TAKEN AND IV WITHHELD FOR ENROUTE. PT VITALS AND MENTAL STATUS ARE EVALUATED CONTINUOUSLY THROUGHOUT TRANSPORT. PT KEEPS SAYING "I CANT DO IT ANYMORE." REPORT IS GIVEN TO HOSPITAL 7 MINUTES OUT. VENOUS ACCESS IS SUCCESSFUL WHILE PULLING INTO AMBULANCE BAY. DEXTROSE 10% IS BROUGHT INTO HOSPITAL. PT ROOM IS NOT AVAILABLE AND PT IS BEING UNCOOPERATIVE AND BELLIGERANT, MOVING AROUND ON STRETCHER SAYING "I CANT DO IT ANYMORE." WHILE WAITING FOR A ROOM TO OPEN FOR PT, A BGL IS TAKEN REVEILING 57, MEDIC 528 GIVES D10 AT THIS TIME. CHARGE NURSE IS NOTIFIED AND PROCURES D50, DCS D10 LINE AND PUSHES D50. 3 MINUTES LATER PT BECOMES VERY SLEEPY AND MUCH MORE COOPERATIVE. PT IS MOVED TO HOSPITAL BED WOTHOUT INCIDENT AND PT CARE IS SUCCESSFULLY TRANSFERRED TO [facility] NURSING STAFF. Initial Vitals @16:45R: 20,Glucose: 57, @16:40P: 81,R: 17,BP: 171/144,Pain: 6/10,GCS: 14,Glucose: 74,SpO2: 94,Revised Trauma: 12,CT Suspected: false @16:43P: 79,R: 22,BP: 136/75,Pain: 6/10,GCS: 14,SpO2: 94,Revised Trauma: 12,CT Suspected: false Assessments @16:29MENTAL:Combative,Confused,Hallucinations,SKIN:Diaphoresis,HEENT:Eyes: Left Pupil: 4-mm,Eyes: Right Pupil: 4-mm,Head/Face: No Abnormalities,Neck/Airway: No Abnormalities,LUNG SOUNDS:General: No Abnormalities,Left Upper: No Abnormalities,Right Upper: No Abnormalities,Left Lower: No Abnormalities,Right Lower: No Abnormalities,ABDOMEN:General: No Abnormalities,Left Upper: No Abnormalities,Right Upper: No Abnormalities,Left Lower: No Abnormalities,Right Lower: No Abnormalities,PELVIS//GI:No Abnormalities,EXTREMITIES:Capillary Refill: Right Upper: < 2 Sec,Left Arm: No Abnormalities,Right Arm: No Abnormalities,Left Leg: No Abnormalities,Right Leg: No Abnormalities,PULSE:Radial: 2+ Normal,NEURO: Impression Diabetic Hypoglycemia Procedures @16:42Saline Lock 10cc (20 ga) Site: Antecubital-RightResponse: UnchangedSucceeded@16:32StretcherResponse: Unchanged@16:353-Lead ECGResponse: UnchangedSucceeded@16:48Dextrose 10% - 25 Milliliters (ml) - Intravenous (IV)Response: Unchanged@16:38Saline Lock 0cc (18 ga) Site: Antecubital-LeftResponse: UnchangedFailed@16:29ALS AssessmentResponse: [facility] [address] [place] [address] EMS Patient Care Report Name: BUNNY LUJAN Room #: 351-P [facility] IN M.R.#: [id number] Admission: 03/19/20 Attend Phys: Joycelyn Hammond Discharge: Date of : 56 Report #: [id number] UnchangedSucceeded Timeline 16:16,Call Received 16:16,Dispatch Notified 16:17,Dispatched 16:19,En Route 16:25,On Scene 16:28,At Patient 16:29,ALS Assessment,Response: UnchangedSucceeded, 16:32,Stretcher,Response: Unchanged 16:35,3-Lead ECG,Response: UnchangedSucceeded, 16:36,Depart Scene 16:38,Saline Lock 0cc 18 ga Site: Antecubital-Left,Response: UnchangedFailed, 16:40,BP: 171/144 M,PULSE: 81,RR: 17 R,SPO2: 94 Ox,ETCO2: ,B,PAIN: 6,GCS: 14, 16:42,Saline Lock 10cc 20 ga Site: Antecubital-Right,Response: UnchangedSucceeded, 16:43,At Destination 16:43,BP: 136/75 M,PULSE: 79,RR: 22 R,SPO2: 94 Ox,ETCO2: ,BG: ,PAIN: 6,GCS: 14, 16:45,BP: / M,PULSE: ,RR: 20 R,SPO2: Ox,ETCO2: ,B,PAIN: ,GCS: , 16:48,Dextrose 10% - 25 Milliliters (ml) - Intravenous (IV),Response: Unchanged 17:21,Call Closed Disclaimer v1.1 Copyright 2020 [employer] This EMS Care Summary contains data elements from the applicable legal record (which may be displayed differently). It is designed to provide pertinent information for the following purposes: continuity of care, clinical quality, and state data reporting. The complete legal record is available to ED staff and administrators of the receiving hospital in bulletn.'s Patient Tracker. All data is provided "as is."
--- NOTE | ~2020-03-19 | HC ---
[facility] [place] [address] CONSULTATION Name: BUNNY LUJAN Room #: 351-P ADM IN M.R.#: [id number] Admission: 03/19/20 Attend Phys: Maximo Moctezuma MD Discharge: Date of : 56 Report #: [id number] THIS REPORT FOR: cc: Jan Freedman MD, Shyam MD Stephens, Thad A. MD ~ CC: Maximo Freedman DATE OF SERVICE: 03/20/2020 WOUND CARE CONSULTATION PERSONAL PHYSICIAN: None on staff. CHIEF COMPLAINT: Diabetic foot ulcers. HISTORY OF PRESENT ILLNESS: This is a 59-year-old white female who was brought into the Emergency Department yesterday from a group home facility for altered mental status and hypoglycemia. Because of hypoglycemia of which the patient's initial blood glucose was 28, the patient was admitted to the hospital and started on a D10 IV drip. The patient on admission was also noted to have what appeared to be a chronic ulcer on the right lateral foot as well as the left fifth metatarsal head. The patient herself is still having altered mental status and is unable to tell me the chronicity or etiology of these ulcers. There are no notes available in regards to the ulcerations themselves. The patient remotely was a patient of mine in the past for a necrotizing arm wound of left forearm, which is now several years healed. There are no other associated ulcerations noted in the notes or per the nursing staff. PAST MEDICAL HISTORY: Significant for peripheral vascular disease, type 2 diabetes, bipolar disease, depression, anxiety, diabetic neuropathy, chronic kidney disease, pancreatitis, contractures, coronary artery disease. PAST SURGICAL HISTORY: Left arm surgery for necrotizing arm infection. CURRENT MEDICATIONS: Multiple, I reviewed the patient's medication list. DRUG ALLERGIES: SULFA. SOCIAL HISTORY: The patient lives in a long-term care facility. The patient has a history of tobacco use. FAMILY HISTORY AND REVIEW OF SYSTEMS: Unobtainable because of the patient's altered mental status. [facility] [address] [place] [address] CONSULTATION Name: BUNNY LUJAN Room #: 351-P [facility] IN M.R.#: [id number] Admission: 03/19/20 Attend Phys: Maximo Moctezuma MD Discharge: Date of : 56 Report #: [id number] PHYSICAL EXAMINATION: VITAL SIGNS: Temperature 36.6, pulse 84, respirations 16, BP 123/66. GENERAL: This is a chronically ill-appearing white female who is lethargic and sleepy, but arousable and is alert only to person, but not place or time. HEENT: Normocephalic, atraumatic. Mucous membranes are dry. Pupils are round. Sclerae are white. NECK: Supple, nontender, without JVD. LUNGS: Clear. HEART: Regular. ABDOMEN: Soft, nontender. EXTREMITIES: The patient moves the upper extremities with minimal difficulty. The patient has contractures of her lower extremities with faint dorsalis pedis pulses. On the right lateral foot is a chronic ulceration with what appears to be a small pustular lesion surrounding it. There is mild erythema surrounding this, but no signs of necrosis. The rest of the foot has no associated ulcers. Right heel is slightly boggy, but otherwise intact. Evaluation of the left lower extremity reveals contractures as well with once again a faint to 1+ dorsalis pedis pulse. On the left fifth metatarsal head is a chronic ulcer with callus and a central area of slough. There is mild erythema surrounding the site, it is minimally tender, there are no signs of necrosis. Left heel is intact, but slightly boggy. NEUROLOGIC: Cranial nerves 2-12 grossly intact. The patient has limited motion of her lower extremities with contractures. LABORATORY VALUES: White count 7.1, hemoglobin 12.0, BUN 9, creatinine 1.0. IMAGING: Head CT was negative for acute abnormalities. IMPRESSION: 1. Chronic ulcer, right lateral foot, limited to breakdown of subcutaneous tissues. 2. Chronic ulcer, left fifth metatarsal head, limited to breakdown of subcutaneous tissues. 3. Diabetes mellitus. 4. Diabetes with neuropathy. 5. Altered mental status, most likely secondary to hypoglycemia, workup is undergoing. 6. Generalized debility. PLAN: At this time, we will use silver foam pads to both these ulcerations, change Tuesday, Tuesday and Tuesday. We will keep her heels elevated off the bed at all times. We will order an arterial Doppler to evaluate for arterial disease. We will attempt to make sure we maximize the patient's oral protein supplementation for healing. Once the patient is more alert, we will utilize physical and occupational therapy for strengthening. [address] [address] CONSULTATION Name: LEBUNNY ROBERTS Room #: 351-P ADM IN M.R.#: [id number] Admission: 03/19/20 Attend Phys: Maximo Moctezuma MD Discharge: Date of : 56 Report #: [id number] I appreciate the ability to consult. We will continue to follow the patient. By: [id number] Link Vallecillo MD /nt
[~2020-03-19 16:54] MED LIST changes: +BACLOFEN 10MG T10 MG PO; +DEPAKOTE ER500 M1 PO; +LEVAQUIN 500 M500 M2 PO; +PRO-STAT LIQUID30 M1 PO
[2020-03-19 18:09] LABS: HEMATOCRIT 37.8 % (37.0-47.0); MCH 29.8 pg (26.0-34.0); MCHC 34.3 g/dL (28.0-37.0); MCV 86.9 fL (80.0-100.0); RBC 4.35 mil/uL (4.20-5.00); RDW 14.2 % (10.5-14.5); WBC 23.1 thou/uL (4.0-11.0)
[2020-03-19 18:20] LABS: ANION GAP 6 mmol/L (7-16); BUN 10 mg/dL (7-18); CALCIUM 9.2 mg/dL (8.5-10.1); CHLORIDE 95 mmol/L (98-107); CO2 29 mmol/L (21-32); CREATININE 1.1 mg/dL (0.6-1.0); POTASSIUM 3.4 mmol/L (3.5-5.1); SODIUM 130 mmol/L (136-145)
[2020-03-19 18:29] LABS: TROPONIN-I <0.06 ng/mL (<0.06)
[2020-03-19 18:33] LABS: GLUCOSE 27 mg/dL (74-106)
[2020-03-19 20:13] LABS: URINE BILIRUBIN NEGATIVE (Negative); URINE BLOOD NEGATIVE (Negative); URINE CLARITY CLEAR; URINE COLOR YELLOW; URINE GLUCOSE-RANDOM* NEGATIVE (Negative); URINE KETONES NEGATIVE (Negative); URINE LEUKOCYTES-REFLEX NEGATIVE (Negative); URINE NITRITE-REFLEX NEGATIVE (Negative); URINE PROTEIN (DIPSTICK) NEGATIVE (Negative); URINE SPECIFIC GRAVITY <= 1.005 (1.005-1.035); URINE UROBILINOGEN 0.2 E.U./dl (0.2-1.0)
[2020-03-19 21:54] VITALS: BP 100/62
[2020-03-19 21:59] VITALS: BP 100/62
[2020-03-19] MEDS ORDERED: BACLOFEN5 MG PO (22:32)
[2020-03-19] MEDS ORDERED: CHOLECALCIFEROL1 GM PO (22:35)
[2020-03-19] MEDS ORDERED: TRAMADOL 50 MG50 MG PO (22:36)
[2020-03-19 23:25] VITALS: BP 103/64
[2020-03-20 03:30] VITALS: BP 110/61
[2020-03-20 03:52] LABS: CALCIUM 8.4 mg/dL (8.5-10.1)
--- NOTE | 2020-03-20 05:37 | NUR ---
PT ARRIVED FROM ER AT 2330. FROM [facility] ADMITTED WITH AMS AND HYPOGLYCEMIA. WC BOUND AT JAIL. DENIES PAIN. CALL LIGHT WITHIN REACH. FREQUENT OBSERVATION.
[2020-03-20 07:31] VITALS: BP 115/58
--- NOTE | 2020-03-20 07:40 | EKG ---
[facility] [place] [address] ELECTROCARDIOGRAM REPORT Name: BUNNY LUJAN Room #: 351-P ADM IN M.R.#: [id number] Admission: 03/19/20 Attend Phys: Maximo Moctezuma MD Discharge: Date of : 56 Report #: [id number] THIS REPORT FOR: cc: Jan Freedman MD, Shyam MD Lundgren,Gustavo Fitch MD [facility] ~ THIS REPORT FOR: //name// [facility] ED Test Date: 2020-03-19 Test Time: 18:02:21 Pat Name: BUNNY LUJAN Department: Room: [facility] Gender: F Senior Specialist: maria del carmen : 1960 Requested By: Navi Holman Order Number: [id number] MD: Gustavo Jose Measurements Intervals [place] Rate: 63 P: 56 [place]: 53 QRS: -24 QRSD: 100 T: 54 QT: 450 QTc: 461 Interpretive Statements Sinus rhythm Borderline left axis deviation Compared to ECG 11/17/2019 19:51:10 Poor R wave progression no longer present Sinus tachycardia no longer present Electronically Signed On 03-20-2020 7:39:52 CDT by Gustavo Jose [email or web address] <ELECTRONICALLY SIGNED> By: Gustavo Jose MD, [facility] 03/20/20 0739 01 01 Gustavo Jose MD, [facility] /EPI
[2020-03-20 10:05] LABS: HEMATOCRIT 36.1 % (37.0-47.0); MCH 29.4 pg (26.0-34.0); MCHC 33.3 g/dL (28.0-37.0); RBC 4.1 mil/uL (4.20-5.00); RDW 14.7 % (10.5-14.5)
[2020-03-20 10:18] LABS: WBC 7.1 thou/uL (4.0-11.0)
[2020-03-20 15:41] VITALS: BP 123/66
--- NOTE | 2020-03-20 15:55 | NUR ---
INITIAL ASSESSMENT: ROLANDA reviewed chart and spoke with nursing and attending physician. Pt was admitted from [facility] L[facility] due to hypoglycemia. ROLANDA met with pt at bedside. Introduced role of SW. Pt is alert/orientated and states she [address] Pt normally uses a w/c. Pt's and sister are listed as contacts. Pt confirms her plan is to return to [facility] when medically stable. ROLANDA faxed clinical info to [facility] for review. Provided update to [facility] liaison. Pt will not need a COVID test prior to discharge. Pt will isolate at the facility when she returns. ROLANDA is following to assist as needed with discharge planning.
--- NOTE | 2020-03-20 17:44 | NUR ---
ASSUMED CARE APPROX 0700. PT DROWSY, BUT ALERT AND ORIENTED X4. ASSESSMENT CHARTED AND VSS. PT AFEBRILE THIS SHIFT. PT WITH BILAT LE SKIN REDNESS. DR. ALMENDAREZ NOTIFIED AND ASSESSED AT BEDSIDE. PT C/O PAIN 10/10 ON PAIN SCALE. PT REPORTS NO RELIEF W/ TYLENOL. DR. ALMENDAREZ NOTIFIED AND TRAMADOL RESUMED FROM HOME MED LIST. PT REPORTED NO PAIN RELIEF W/ TRAMADOL. DR. ALMENDAREZ NOTIFIED AND NORCO ORDERED. PT BS HAVE BEEN STABLE THIS SHIFT. PT ON ROOM AIR. NO SIGNS OF RESPIRATORY DISTRESS OR DYSPNEA NOTED. FLUIDS INFUSING PER ORDERS. WILL CONTINUE TO MONITOR.
[2020-03-20 19:50] VITALS: BP 131/63
[2020-03-21 00:06] LABS: GLYCOHEMOGLOBIN (HGB A1C) 5.8 % (4.8-5.6)
--- NOTE | 2020-03-21 04:21 | NUR ---
PATIENT IS PROGRESSING SLOWLY IN HER CARE PLAN. VITAL SIGNS STABLE WITH PATIENT HAVING NO COMPLAINTS OF NAUSEA. PATIENT DID COMPLAIN OF PAIN WHICH WAS TREATED APPROPRIATELY. FULLY ORIENTED THROUGHOUT SHIFT, PATIENT IS ABLE TO CALL APPROPRIATELY FOR NEEDS. BLOOD SUGAR TO BE CHECKED THIS MORNING. LARGE OUTPUT THROUGH BANERJEE. PATIENT REFUSES TURNS. CONTINUE PLAN OF CARE.
[2020-03-21 04:50] VITALS: BP 128/66
[2020-03-21 05:40] LABS: HEMATOCRIT 33.1 % (37.0-47.0); MCH 29.6 pg (26.0-34.0); MCHC 33.3 g/dL (28.0-37.0); RBC 3.72 mil/uL (4.20-5.00); RDW 15.1 % (10.5-14.5); WBC 6.1 thou/uL (4.0-11.0)
[2020-03-21 06:49] LABS: CALCIUM 8.6 mg/dL (8.5-10.1); CREATININE 0.9 mg/dL (0.6-1.0); MAGNESIUM 1.8 mg/dL (1.8-2.4); POTASSIUM 4.1 mmol/L (3.5-5.1)
[2020-03-21 07:18] VITALS: BP 117/60
--- NOTE | 2020-03-21 09:51 | HC ---
[facility] [place] [address] CONSULTATION Name: BUNNY LUJAN Room #: 351-P ADM IN M.R.#: [id number] Admission: 03/19/20 Attend Phys: Maximo Moctezuma MD Discharge: Date of : 56 Report #: [id number] THIS REPORT FOR: cc: Jan Freedman MD, Shyam MD Al-Mubaslat, Ahmad MD ~ CC: Maximo Freedman DATE OF SERVICE: 03/20/2020 ENDOCRINE CONSULTATION NOTE CONSULTING PHYSICIAN: Dr. Moctezuma REASON FOR CONSULTATION: Hypoglycemia, type 2 diabetes mellitus. HISTORY OF PRESENT ILLNESS: This is a 59-year-old female patient who was admitted yesterday following a presentation from her correction facility at the [facility] due to confusion, mental status changes, and severe hypoglycemia. She was reportedly found to have a blood glucose of 28 mg/dL at home. The patient was treated repeatedly with D50 and then further with D10 IV fluid support to address these issues with hypoglycemia. The patient's background is noted for type 2 diabetes mellitus; however, the patient was unable to shed much light on the specifics of her treatment at her correction nor of her blood glucose pattern over the past few months. She seems to believe that she has had type 2 diabetes for over 10 years. She does note that she receives NovoLog therapy in some capacity at her correction. She says that she does not appreciate hypoglycemic symptoms when they occur. The patient is not aware of issues pertaining to diabetic eye disease, she is known to have chronic kidney disease. She does have intermittent issues with numbness and tingling. Also, the patient is known to have hypothyroidism and is currently maintained on levothyroxine 75 mcg daily. She is also known to have bipolar disorder and is on maintenance therapy for this issue. REVIEW OF SYSTEMS: CONSTITUTIONAL: Fatigue, tiredness, but not weight changes, fever or chills. HEENT: Negative for sore throat, sinus pain or any drainage. PULMONARY: Occasional shortness of breath and cough, but not hemoptysis. CARDIAC: Negative for chest pain, palpitations, syncope or presyncope. GASTROINTESTINAL: Noted for occasional abdominal discomfort, nausea, but no vomiting. NEUROLOGIC: Occasional numbness, tingling, lightheadedness, dizziness, but not [address] [address] CONSULTATION Name: BUNNY LUJAN Room #: 351-P ADM IN .R.#: [id number] Admission: 03/19/20 Attend Phys: Maximo Moctezuma MD Discharge: Date of : 56 Report #: [id number] seizure activity or loss of consciousness. SKIN: Negative for rash, ulceration or other major abnormalities. Otherwise, review of systems noncontributory other than those mentioned in HPI. PAST MEDICAL HISTORY: 1. Type 2 diabetes mellitus. 2. Chronic kidney disease. 3. Bipolar disorder. 4. Hypothyroidism. 5. GERD. 6. Migraine headaches. 7. Anxiety. 8. Diabetic neuropathy. 9. Essential tremors. 10. Hypomagnesemia. 11. History of pancreatitis. 12. History of CAD and RI. ALLERGIES: She is allergic to FISH, IODINE, SOAP, SULFA, PIPERACILLIN. OUTPATIENT MEDICATIONS: Include levothyroxine 75 mcg daily, Wellbutrin-SR 100 mg daily, Excedrin Migraine daily p.r.n., Tylenol Extra Strength 500 p.r.n., Zyrtec 10 mg daily, gabapentin 300 mg t.i.d., omeprazole 20 mg daily, albuterol q.i.d. p.r.n., Zofran 4 mg q. 6 hours p.r.n., Mysoline 50 mg at bedtime, Depakote ER 500 mg daily, Seroquel 50 mg at bedtime, NovoLog insulin sliding scale. FAMILY HISTORY: Noncontributory. SOCIAL HISTORY: The patient is a smoker, currently resides at a correction. Denies use of alcohol or illicit drugs. PHYSICAL EXAMINATION: VITAL SIGNS: Blood pressure is 115/58 mmHg, heart rate is 88 beats per minute, respirations 16 per minute, temperature 36.3 degrees Celsius. CONSTITUTIONAL: The patient is lying in bed, appears relatively comfortable, not in apparent distress. HEENT: Anicteric sclerae. Intact extraocular motions. NECK: Supple, without JVD, carotid bruits or lymphadenopathy. I do not appreciate thyromegaly. CHEST: Noted for moderate entry bilaterally with scattered rales, rhonchi, but not crackles. HEART: Regular rate and rhythm without murmurs or gallops. ABDOMEN: Soft, lax. No guarding. Active bowel sounds. EXTREMITIES: Lower extremity exam, trace ankle edema. Palpable pedal pulses. NEUROLOGIC: Awake, alert, somewhat confused. Does not move lower extremities. [facility] [address] [place] [address] CONSULTATION Name: BUNNY LUJAN Room #: 351-P ADM IN M.R.#: [id number] Admission: 03/19/20 Attend Phys: Maximo Moctezuma MD Discharge: Date of : 56 Report #: [id number] PSYCHIATRIC: Interactive. Flat mood and affect. Inappropriate answers and disordered thought process. LABORATORY RESULTS: On arrival, blood glucose was 22 and then with supportive measures it had increased gradually, but then dropped again 5 hours later to 63; this morning, it is 130 mg/dL. Sodium 131, potassium 4.0, chloride 97, CO2 of 28, anion gap 6, BUN 9, creatinine 1.0, glucose 246, AST 9, amylase 31, lipase 129, total bilirubin 0.2, direct bilirubin 0.1, calcium 8.4, phosphorus 2.3, magnesium 2.0, alkaline phosphatase 102, ALT 16, total protein 6.9, albumin 2.8, EGFR 56. Ammonia less than 10. Total CPK 44, troponin negative. BNP 186. INR 1.0. White blood count 7.1, hemoglobin 12, hematocrit 36.1, platelets 176. Hemoglobin A1c is pending and it was 5.9 in 03/2018. Free T4 is 1.2. TSH is 0.779. ASSESSMENT AND PLAN: 1. Hypoglycemia. As noted above, the patient presented in a state of severe hypoglycemia with neurological symptoms. Although the patient's history is unreliable, she explained in specific terms that she does not appreciate hypoglycemic symptoms which adds to the severity of this condition. An extensive review of her correction medical records revealed that she receives therapy with NovoLog sliding scale, but I could not locate any other regular ongoing maintenance diabetes therapeutics. Hemoglobin A1c done a couple of years ago was in the high 5 range, which gives her a mild outlook of hyperglycemia. For the time being, I would certainly continue with supportive measures as needed to maintain her blood glucose values over 180 twice in a row, which if achieved we can taper the patient off of dextrose support and monitor her blood glucose as per protocol and address hypoglycemia as per [facility]'s protocol. 2. Type 2 diabetes mellitus. Unfortunately, the patient is unreliable when it comes to history taking and I am unable to acquire an accurate sense of her level of hyperglycemia and controlled requirements at her correction. From my review of her chart, it appears that the only active antidiabetic therapeutic is NovoLog sliding scale. It is feasible that she could develop severe hypoglycemia if the scale were to be applied aggressively and at low blood glucose thresholds relatively speaking. That said, I would rather prefer the patient not receive this at all to avoid similar occurrences in the future. Hemoglobin A1c has been ordered and is pending and this would help shed some light on her outlook of control. In the future, if the patient develops mild to moderate hypoglycemia, she could be readily treated with oral hypoglycemic agents including metformin at a low dose given her stage 3 chronic kidney disease. Given the mention of pancreatitis in her past medical history, I would avoid DPP-4 inhibitors as well as GLP-[address] [address] CONSULTATION Name: BUNNY LUJAN Room #: 351-P [facility] IN M.R.#: [id number] Admission: 03/19/20 Attend Phys: Maximo Moctezuma MD Discharge: Date of : 56 Report #: [id number]. Also, given her propensity for severe hypoglycemia, I would avoid sulfonylureas. We will be able to determine her therapeutic needs more accurately as she stabilizes her blood glucose outlook during this hospital stay. 3. Hypothyroidism. The patient is maintained on a stable dose of levothyroxine 75 mcg daily and has a TSH that is reflective of adequate control. She is to continue the same dose. 4. Diabetic neuropathy. The patient is maintained on gabapentin 300 mg t.i.d. with adequate symptom control. She is to continue the same. I have reviewed the patient's clinical care notes, laboratory data, radiology data, jail care facility records in detail for over 35 minutes in addition to my interaction time with the patient. I certainly appreciate this consultation by Dr. Moctezuma. <ELECTRONICALLY SIGNED> By: Ga Shelby MD 03/21/20 0951 1159 1337 Ga Shelby MD /nt
--- NOTE | 2020-03-21 13:14 | NUR ---
SW reviewed chart and spoke with nursing and attending physician. Pt is progressing towards goals for discharge. Discharge back to [facility] is anticipated for tomorrow. SW notified [facility] liaison, who confirms they are able to accept pt back over the weekend. Staff to contact their on-call bariatric coordinator to arrange transportation and facilitate discharge. Pt is able to transport via w/c van. Finalized discharge orders/summary will need to be faxed when available. Nursing to call report and notify pt's family. Chart will need to be copied. SW is available to assist should needs arise. [facility]-- E-fax: [phone] Seo Intern-Valentina: [phone]
[2020-03-21 15:02] VITALS: BP 145/76
--- NOTE | 2020-03-21 18:09 | NUR ---
ASSUMED CARE APPROX 0700. PT ALERT AND ORIENTED X4. ASSESSMENT CHARTED AND VSS. PT MORE ALERT TODAY. APPETITE IMPROVED TODAY. BILAT LE CELLULITIS SHOWS IMPROVEMENT THIS SHIFT. ANXIOUS TO BE DISCHARGED. DISCHARGE TO FACILITY PLANNED FOR TOMORROW. WOUND CARE TO FEET GIVEN BY WOUND CARE TEAM THIS SHIFT. PT C/O OF PAIN TODAY AND REPORTED RELIEF WITH PAIN MEDICATION. ON ROOM AIR WITH NO SIGNS OF RESPIRATORY DISTRESS NOTED. IV FLUIDS STOPPED PER DR. JIMENEZ. PT'S BLOOD SUGARS HAVE BEEN STABLE.
[2020-03-21 19:14] VITALS: BP 154/83
--- NOTE | 2020-03-21 21:52 | NUR ---
PT RESTING IN BED WATCHING TV . BLE WRAPS INTAC, PT REPORTS CIRCULATION/SENSATION INTACT. PT REQUESTED PRN FOR GENERALIZED PAIN AND MUSCLE SPASMS. LUNGS WITH CRACKLES, BANERJEE TO DD. PT SMILING, [facility] CONTACT. PT VERBALIZED PLAN FOR DC IN AM.
[2020-03-22 04:51] VITALS: BP 135/74
[2020-03-22 06:11] LABS: HEMATOCRIT 33.7 % (37.0-47.0); HEMOGLOBIN 11.3 gm/dL (12.0-15.0); MCHC 33.7 g/dL (28.0-37.0); MCV 89.1 fL (80.0-100.0); RBC 3.78 mil/uL (4.20-5.00); RDW 14.7 % (10.5-14.5); WBC 6.2 thou/uL (4.0-11.0)
[2020-03-22 06:20] LABS: CALCIUM 8.9 mg/dL (8.5-10.1); CREATININE 1.1 mg/dL (0.6-1.0); MAGNESIUM 1.7 mg/dL (1.8-2.4); POTASSIUM 3.9 mmol/L (3.5-5.1)
[2020-03-22 06:59] VITALS: BP 131/71
[2020-03-22] MEDS ORDERED: CLEOCIN HCL300 MG PO (12:09)
[2020-03-22 15:07] VITALS: BP 127/73
--- NOTE | 2020-03-22 15:43 | NUR ---
READY FOR DISCHARGE. UNABLE TO REACH JIM CUELLAR LIASION. ACTUARIAL SCIENCE PROFESSOR STATISTICAL ASSISTANT NOTIFIED. WAITING STATISTICAL ASSISTANT BACK.
[2020-03-22 19:19] VITALS: BP 151/87
[2020-03-23 03:49] VITALS: BP 141/88
--- NOTE | 2020-03-23 04:51 | NUR ---
ASSUMED CARE AT 1900, ASSESSMENT COMPLETED. PT C/O HEADACHE AND RIGHT FOOT/ANKLE PAIN; HAVE GIVEN NORCO, TYLENOL, AND BACLOFEN OVERNIGHT. DENIES NAUSEA OR SOB. BANERJEE DRAINING COPIOUS AMOUNTS OF CLEAR, LIGHT YELLOW URINE. PT REQUESTS FREQ DRINKS, EDUCATED SHE NEEDS TO BE DRINKING DIET SODA D/T HER DIABETES, BUT SHE REFUSES DIET. DRESSINGS TO BILAT FEET ARE C/D/I; TRACE EDEMA AND PINKNESS TO BILAT ANKLES. NO OTHER CONCERNS, WILL CONTINUE TO MONITOR.
[2020-03-23 06:08] LABS: HEMATOCRIT 39.7 % (37.0-47.0); HEMOGLOBIN 13.2 gm/dL (12.0-15.0); MCH 29.8 pg (26.0-34.0); MCHC 33.2 g/dL (28.0-37.0); MCV 89.5 fL (80.0-100.0); RBC 4.43 mil/uL (4.20-5.00); WBC 6.3 thou/uL (4.0-11.0)
[2020-03-23 06:20] LABS: CALCIUM 9.4 mg/dL (8.5-10.1); CREATININE 1.1 mg/dL (0.6-1.0); MAGNESIUM 2.2 mg/dL (1.8-2.4)
[2020-03-23 07:04] VITALS: BP 130/74
[2020-03-23] MEDS ORDERED: CEFUROXIME500 MG PO (14:11)
--- NOTE | 2020-03-23 16:21 | NUR ---
ASSUMED PATIENT CARE AT 0700. A/0 X4. DC TO CENTER NOW BY MERCEDES GUZMAN.
--- NOTE | 2020-03-24 08:10 | P ---
[facility] [place] [address] PROCEDURE REPORT Name: BUNNY LUJAN Room #: 351-P DIS IN M.R.#: [id number] Admission: 03/19/20 Attend Phys: Maximo Moctezuma MD Discharge: 03/23/20 Date of : 56 Report #: [id number] THIS REPORT FOR: cc: Jan Freedman MD, Shyam MD Althoff, Jeffrey R. MD ~ CC: aMximo Freedman DATE OF SERVICE: 03/21/2020 PREPROCEDURE DIAGNOSES: Chronic neuropathic type ulcerations to the lateral aspect of the right foot with abscess and cellulitis and neuropathic type ulceration to the left lateral foot. POSTPROCEDURE DIAGNOSES: Chronic neuropathic type ulcerations to the lateral aspect of the right foot with abscess and cellulitis and neuropathic type ulceration to the left lateral foot. PROCEDURE PERFORMED: Incision and drainage of a subcutaneous abscess of the right lateral foot and debridement of callus on both feet. INDICATIONS: The patient was seen in the hospital for cellulitis and was noted to have ulcers of both feet as well as a subcutaneous abscess of the right foot. It was felt that incision and drainage and culture would be appropriate. The patient is agreeable and has given me verbal consent. DESCRIPTION OF PROCEDURE: A time-out was taken. Correct site, correct patient, correct procedure were verified. The wound areas were then prepped and draped in usual sterile fashion and using a #15 bladed scalpel and tissue forceps, callus and crusting was debrided carefully on both lateral feet. Then, attention was turned to the abscess associated with the ulcer of the right foot. An incision was made and the abscess cavity was unroofed using a #15 bladed scalpel. A moderate amount of purulent material was released. The wound was then flushed with saline revealing cleaning the purulent material and debris down to a healthy, clean base. Culture was obtained. Estimated blood loss 1 mL. Pain experienced during procedure is 0/10, postprocedure is 0/10. The patient tolerated the procedure well with no complications. Abscess cavity measurements preprocedure were 0 x 0 x 0 as this was closed and covered with skin, post-abscess measurements 1.0 x 1.2 x 0.2 cm. <ELECTRONICALLY SIGNED> By: Ronaldo Pollock MD 03/24/20 0810 1800 [id number] Ronaldo Pollock MD /nt
== END 2020-03-23 16:23 | DRG 622 ==
LOC: ER 16:54 → 3W 19:09 → EROBS 19:09 → 3W 21:55
PROVIDERS: Emergency Medicine; Nurse Practitioner Family; ADMIT Internal Medicine; ATTEND Internal Medicine
PROC: 0JBQ0ZZ Excision of Right Foot Subcutaneous Tissue and Fascia, Open Approach (ICD-10-PCS; principal; 2020-03-21)
PROC: 0JBR0ZZ Excision of Left Foot Subcutaneous Tissue and Fascia, Open Approach (ICD-10-PCS; principal; 2020-03-21)
PROC: 0J9Q0ZZ Drainage of Right Foot Subcutaneous Tissue and Fascia, Open Approach (ICD-10-PCS; principal; 2020-03-21)
DX: E11.621 Type 2 diabetes mellitus with foot ulcer (principal); G93.41 Metabolic encephalopathy; L03.116 Cellulitis of left lower limb; G82.20 Paraplegia, unspecified; L02.611 Cutaneous abscess of right foot; E87.1 Hypo-osmolality and hyponatremia; L03.115 Cellulitis of right lower limb; L03.032 Cellulitis of left toe; F31.9 Bipolar disorder, unspecified; E03.9 Hypothyroidism, unspecified; F17.210 Nicotine dependence, cigarettes, uncomplicated; E11.649 Type 2 diabetes mellitus with hypoglycemia without coma; E11.22 Type 2 diabetes mellitus with diabetic chronic kidney disease; I12.9 Hypertensive chronic kidney disease with stage 1 through stage 4 chronic kidney disease, or unspecified chronic kidney disease; K21.9 Gastro-esophageal reflux disease without esophagitis; G43.909 Migraine, unspecified, not intractable, without status migrainosus; F41.9 Anxiety disorder, unspecified; E11.40 Type 2 diabetes mellitus with diabetic neuropathy, unspecified; E83.42 Hypomagnesemia; I25.10 Atherosclerotic heart disease of native coronary artery without angina pectoris; E11.51 Type 2 diabetes mellitus with diabetic peripheral angiopathy without gangrene; N18.3 Chronic kidney disease, stage 3 (moderate); L97.519 Non-pressure chronic ulcer of other part of right foot with unspecified severity; K59.00 Constipation, unspecified; L97.529 Non-pressure chronic ulcer of other part of left foot with unspecified severity; N32.81 Overactive bladder; G47.00 Insomnia, unspecified; Z79.899 Other long term (current) drug therapy; Z79.82 Long term (current) use of aspirin; Z87.01 Personal history of pneumonia (recurrent); I25.2 Old myocardial infarction; Z79.4 Long term (current) use of insulin; Z88.1 Allergy status to other antibiotic agents; Z91.013 Allergy to seafood; Z88.2 Allergy status to sulfonamides; Z91.048 Other nonmedicinal substance allergy status
CPT/HCPCS: 10080